=== PATIENT | male | born 1970 | race Caucasian/White ===

== ENCOUNTER → 2017-07-04 10:47 | Outpatient (CLI) | payer OTHER | END | disposition home or self-care (01) | LOC: D.RAD 10:30 | DX: Z02.71 Encounter for disability determination (principal) ==

== ENCOUNTER 2019-02-15 12:16 | Inpatient (IN) | payer MEDICAID ==
[~2019-02-15] VITALS: Ht 180.3 cm; Wt 192.8 kg
--- NOTE | 2019-02-15 13:05 | NUR ---
ALERT AND ORIENTED X4 WITH DYSPNEA NOTED. OBESE MALE WITH BS NOTED. ENCOURAGED TO USE CALL LIGHT FOR ASSIST.
[2019-02-15 13:36] LABS: BASOPHILS 0.4 % (0-2); EOSINOPHILS 0.2 % (0-7); HEMATOCRIT 47.4 % (42.0-54.0); HEMOGLOBIN 16.2 g/dL (13.5-17.5); IMMATURE GRANULOCYTES 1.4 % (0-5); LYMPHOCYTES 12.8 % (15-50); MCH 29.7 pg (26.0-34.0); MCHC 34.2 g/dL (31.0-37.0); MEAN PLATELET VOLUME 9.1 fL (7.4-10.4); MONOCYTES 8.8 % (2-11); NEUTROPHILS 76.4 % (40-80); PLATELET COUNT 388 10x3/uL (130-400); RBC 5.45 10x6/uL (4.20-6.10)
[2019-02-15 13:52] LABS: ALBUMIN 3.1 g/dL (3.4-5.0); ALKALINE PHOSPHATASE 106 U/L (46-116); ALT (SGPT) 22 U/L (10-68); BILIRUBIN - TOTAL 0.14 mg/dL (0.2-1.3); CALC OSMOLALITY 276 mosm/kg (275-300); CALCIUM 9.2 mg/dL (8.5-10.1); CARBON DIOXIDE 24.1 mmol/L (21.0-32.0); CHLORIDE - SERUM 102 mmol/L (98-107); CREATININE - SERUM 1.1 mg/dL (0.6-1.3); GLUCOSE 139 mg/dL (74-106); POTASSIUM - SERUM 4.3 mmol/L (3.5-5.1); PROTEIN - SERUM 7.5 g/dL (6.4-8.2); SODIUM 136 mmol/L (136-145); UREA NITROGEN 21 mg/dL (7-18); eGFR NON AFRICAN AMERICAN 75 mL/min (90-120)
[2019-02-15 13:59] VITALS: BP 152/87
[2019-02-15 15:37] LABS: CKMB 2.2 U/L (0.0-3.6); CREATINE KINASE 93 UL (21-232); TROPONIN-I 0.039 ng/mL (0.000-0.060)
[2019-02-15 20:34] LABS: CKMB 2.1 U/L (0.0-3.6); CREATINE KINASE 73 UL (21-232); TROPONIN-I < 0.017 ng/mL (0.000-0.060)
[2019-02-15 20:40] VITALS: BP 163/86
--- NOTE | 2019-02-15 23:02 | NUR ---
PT RESTING IN BED. EYES CLOSED. NO SIGNS OF DISTRESS. BREATHING EVEN AND UNLABORED. IV SITE LT HAND DRESSING CLEAN DRY AND INTACT. NO SIGNS OF INFECTION. BOWEL SOUNDS ACTIVE. LUNG SOUNDS DIMINISHED. WILL CONTINUE PLAN OF CARE. CALL LIGHT IN REACH. BED LOWERED AND LOCKED. BED RAILS UPX2.
[2019-02-16 00:19] VITALS: BP 154/85
--- NOTE | 2019-02-16 01:01 | NUR ---
REPORT RECEIVED AND CARE OF PT ASSUMED. PT RESTING ON LEFT SIDE AT THIS TIME WITH EASY RESPIRATIONS. WILL MONITOR FOR NEEDS.
[2019-02-16 03:15] LABS: BASOPHILS 0.1 % (0-2); EOSINOPHILS 0 % (0-7); HEMOGLOBIN 15.7 g/dL (13.5-17.5); IMMATURE GRANULOCYTES 2.4 % (0-5); LYMPHOCYTES 6.1 % (15-50); MCH 29.4 pg (26.0-34.0); MCHC 33.4 g/dL (31.0-37.0); MEAN PLATELET VOLUME 9.2 fL (7.4-10.4); MONOCYTES 2.6 % (2-11); NEUTROPHILS 88.8 % (40-80); PLATELET COUNT 376 10x3/uL (130-400); RBC 5.34 10x6/uL (4.20-6.10); RDW 15.2 % (11.5-14.5); WBC 14.2 10x3/uL (4.8-10.8)
[2019-02-16 03:37] LABS: CALC OSMOLALITY 280 mosm/kg (275-300); CALCIUM 8.8 mg/dL (8.5-10.1); CARBON DIOXIDE 27.4 mmol/L (21.0-32.0); CHLORIDE - SERUM 101 mmol/L (98-107); CKMB 2.1 U/L (0.0-3.6); CREATINE KINASE 60 UL (21-232); CREATININE - SERUM 1.1 mg/dL (0.6-1.3); GLUCOSE 181 mg/dL (74-106); MAGNESIUM - SERUM 1.9 mg/dL (1.8-2.4); POTASSIUM - SERUM 4.4 mmol/L (3.5-5.1); SODIUM 137 mmol/L (136-145); TROPONIN-I < 0.017 ng/mL (0.000-0.060); UREA NITROGEN 19 mg/dL (7-18); eGFR NON AFRICAN AMERICAN 75 mL/min (90-120)
[2019-02-16 04:50] VITALS: BP 164/87
[2019-02-16 08:58] VITALS: BP 154/96
--- NOTE | 2019-02-16 09:00 | NUR ---
ALERT AND ORIENTED WITHCONTINUED DYSPNEA. BREATH SOUNDS DIMINISHED TO BLQ ANTERIOR. OVF CONTINUED TO LT. HAND AT PRESCRIBED RATE. NO PERIPHERAL EDEMA NOTED. ENCOURAGED TO COUGH AND DEEP BREATH AND AMBULATE. ENOURAGED TO USE CALL LIGHT FOR ASSSIT.
[2019-02-16 12:35] VITALS: BP 179/81
[2019-02-16 17:36] VITALS: BP 143/72
[2019-02-16 20:21] VITALS: BP 161/75
[2019-02-17 00:32] VITALS: BP 151/56
--- NOTE | 2019-02-17 03:00 | NUR ---
I have reviewed this patient and I concur with the Shift Assessment completed by the Licensed Practical Nurse today this shift.
[2019-02-17 04:37] VITALS: BP 140/58
[2019-02-17 05:24] LABS: BASOPHILS 0.1 % (0-2); EOSINOPHILS 0.1 % (0-7); HEMATOCRIT 46.3 % (42.0-54.0); HEMOGLOBIN 15.2 g/dL (13.5-17.5); IMMATURE GRANULOCYTES 2.4 % (0-5); LYMPHOCYTES 5.7 % (15-50); MCHC 32.8 g/dL (31.0-37.0); MCV 88.4 fL (80.0-100.0); MEAN PLATELET VOLUME 9.4 fL (7.4-10.4); MONOCYTES 6.1 % (2-11); NEUTROPHILS 85.6 % (40-80); PLATELET COUNT 354 10x3/uL (130-400); RBC 5.24 10x6/uL (4.20-6.10); RDW 15.3 % (11.5-14.5); WBC 17.7 10x3/uL (4.8-10.8)
[2019-02-17 05:47] LABS: CALC OSMOLALITY 283 mosm/kg (275-300); CALCIUM 8.7 mg/dL (8.5-10.1); CARBON DIOXIDE 28.3 mmol/L (21.0-32.0); CHLORIDE - SERUM 104 mmol/L (98-107); CREATININE - SERUM 1.1 mg/dL (0.6-1.3); GLUCOSE 204 mg/dL (74-106); POTASSIUM - SERUM 4.5 mmol/L (3.5-5.1); SODIUM 138 mmol/L (136-145); UREA NITROGEN 19 mg/dL (7-18); eGFR NON AFRICAN AMERICAN 75 mL/min (90-120)
[2019-02-17 07:28] VITALS: BP 141/79
--- NOTE | 2019-02-17 07:46 | NUR ---
ALERT AND ORIENTED WITH DECREASED SHORTNESS OF BREATH. SLIGHTLY DIMINISHED TORLQ ANTERIOR. ERRYTHEMA NOTED TO TONISL AREAS RT. SIDE WITH PT STATING TROUBLE SWALLOWING AT TIMES. NO PERIPHERAL EDEMA. ENCOURAGED TO USE CALL LIGHT FOR ASSSIT.
[2019-02-17 12:52] VITALS: BP 151/61
--- NOTE | 2019-02-17 17:00 | NUR ---
CALLED TO PATIENTS ROOM FOR COMPLAINTS OF CHEST PAIN. PT ASSESSED WITH RAPID RESPONSE CALLED. SEE RAPID RESPONSE SHEET.
[2019-02-17 17:36] LABS: CKMB 3.3 U/L (0.0-3.6); CREATINE KINASE 71 UL (21-232); TROPONIN-I 0.045 ng/mL (0.000-0.060)
--- NOTE | 2019-02-17 17:40 | NUR ---
PT LEFT FOR CTA WITH 20G STARTED TO RT. FOREARM, STABLE AT TIME OF DEPARTURE WITH MS GIVEN PER ORDER. ICU NURSE WITH PATIENT
--- NOTE | 2019-02-17 18:00 | NUR ---
1700: RAPID RESPONSE CALLED, PT COMPLAINT OF SEVERE CHEST PAIN TO RT SIDE WITH SHORTNESS OF BREATH. CARIAC ENZYMES, DDIMER, ABG, EKG, CHEST XRAY ORDERED. SPOKE WITH DR GRISSOM, STATED TO DO CTA CHEST FOR PE PROTOCOL, NITRO X 1 FOR CHEST PAIN, AND 2 TO 4 MG X 1 MORPHINE IF PAIN PERSISTS, AND DR GRISSOM SAID TO CALL BACK WITH DDIMER/CARDIAC ENZYME RESULTS. DR CURTIS ALSO NOTIFIED, STATED HE AGREED WITH ORDERS ALREADY ORDERED/CARRIED OUT, AND TO MAKE SURE CARDIAC ENZYMES ARE PERFORMED IN AM. PT EF 55%. AT 1800: RESULTS CALLED TO DR GRISSOM AND CTA CHEST IS COMPLETE. DR GRISSOM STATED TO KEEP PT IN ROOM, AND THAT HE WAS ON HIS WAY TO SEE THE PT. PT STATES CHEST PAIN HAS SUBSIDED AND DENIES ANY FURTHER NEEDS/DISCOMFORTS. NO FURTHER ACTIONS. SEE RAPID RESPONSE SHEET FOR FURTHER INFORMATION.
--- NOTE | 2019-02-17 18:00 | NUR ---
PT RETURNED WITH IVF INFUSING AT PRESCRIBED RATE. DENIES ANY PAIN AT THIS TIME.
[2019-02-17 18:24] VITALS: BP 179/71
--- NOTE | 2019-02-17 19:00 | NUR ---
PT ALERT WHEN ENTERING THE ROOM BUT SLIGHTLY DISORIENTED. PATIENT DEMEANOR MUCH DIFFERENT THAN NIGHT BEFORE. PATIENT IRRITABLE. STATES "I DIDN'T WANT ALL THESE MEDICINES THEY GAVE ME! I TOLD YALL I DONT LIKE PAIN MEDICINE!." PATIENT CALMS EASILY BUT REMAINS IRRITAED. COMPLAINS OF RIGHT SIDED PAIN AGAIN AND DENIES AND ACID REFLUX HISTORY SINCE GALL BLADDER REMOVAL YEARS AGO. PATIENT STATES HE WOULD LIKE TO REST. DENIES FURTHER NEEDS AT THIS TIME. BROTHER AT BEDSIDE. EDUCATED PATIENT ON FALL PRECAUTIONS. PATIENT VERBALIZES UNDERSTANDING. CPOC.
[2019-02-17 20:00] VITALS: BP 156/83
[2019-02-18] VITALS: BP 132/69
[2019-02-18 04:00] VITALS: BP 138/69
[2019-02-18 05:38] LABS: BASOPHILS 0.1 % (0-2); EOSINOPHILS 0 % (0-7); HEMATOCRIT 44.5 % (42.0-54.0); HEMOGLOBIN 14.8 g/dL (13.5-17.5); IMMATURE GRANULOCYTES 4.2 % (0-5); LYMPHOCYTES 7.9 % (15-50); MCHC 33.3 g/dL (31.0-37.0); MCV 87.1 fL (80.0-100.0); MEAN PLATELET VOLUME 9.6 fL (7.4-10.4); MONOCYTES 10.6 % (2-11); NEUTROPHILS 77.2 % (40-80); PLATELET COUNT 316 10x3/uL (130-400); RBC 5.11 10x6/uL (4.20-6.10); RDW 15.3 % (11.5-14.5); WBC 19.5 10x3/uL (4.8-10.8)
[2019-02-18 05:52] LABS: CALC OSMOLALITY 275 mosm/kg (275-300); CALCIUM 8.4 mg/dL (8.5-10.1); CARBON DIOXIDE 31.2 mmol/L (21.0-32.0); CHLORIDE - SERUM 102 mmol/L (98-107); MAGNESIUM - SERUM 2.2 mg/dL (1.8-2.4); POTASSIUM - SERUM 4.4 mmol/L (3.5-5.1); SODIUM 136 mmol/L (136-145); UREA NITROGEN 18 mg/dL (7-18); eGFR NON AFRICAN AMERICAN 84 mL/min (90-120)
[2019-02-18 05:55] LABS: GLUCOSE 136 mg/dL (74-106)
--- NOTE | 2019-02-18 07:00 | NUR ---
ALERT AND ORIENTED, SITTING UP IN BED. NO C/O PAIN. NO S/S OF ACUTE DISTRESS NOTED. LEFT SIDE FACIAL SWELLING, TONSILS RED AND SWOLLEN. GROWTH TO LEFT SIDE OF CHEST, PHYSICIAN AWARE. ON ELECTROLYTE PROTOCOL. IV TO LEFT HAND/RIGHT FOREARM, D5 1/2 NS INFUSING @ 75ML/HR. SITES PATENT WITHOUT REDNESS OR SWELLING. PT DENIES ANY NEEDS AT THIS TIME. CALL LIGTH IN REACH. WILL CONTINUE TO MONITOR..
[2019-02-18 09:02] VITALS: BP 132/84
--- NOTE | 2019-02-18 09:51 | NUR ---
I have reviewed this patient and I concur with the Shift Assessment completed by the Licensed Practical Nurse today this shift.
[2019-02-18 13:12] VITALS: BP 188/90
[2019-02-18 14:15] VITALS: Ht 180.3 cm; Wt 192.8 kg
[2019-02-18 16:47] LABS: APPEARANCE CLEAR (CLEAR); BILIRUBIN NEGATIVE (NEGATIVE); COLOR YELLOW (YELLOW); GLUCOSE 100 mg/dL (NEGATIVE); KETONE NEGATIVE (NEGATIVE); NITRITE NEGATIVE (NEGATIVE); PROTEIN NEGATIVE (NEGATIVE); UROBILINOGEN NORMAL (NORMAL)
[2019-02-18 18:02] VITALS: BP 150/80
--- NOTE | 2019-02-18 19:00 | NUR ---
ALERT AND ORIENTED. NO C/O PAIN. NO S/S OF ACUTE DISTRESS NOTED. PT DENIES ANY NEEDS.
[2019-02-18 20:00] VITALS: BP 144/83
--- NOTE | 2019-02-18 20:30 | NUR ---
SUPINE IN BED, A&O X 4. REPORTS MILD PAIN, BUT REFUSES PAIN MEDICATION. STATES HE CAN TOLERATE PAIN BETTER THAN HE TOLERATES PAIN MEDICATION. DENIES NEEDS AT THIS TIME, WILL CONTINUE TO MONITOR.
[2019-02-19 04:00] VITALS: BP 122/75
[2019-02-19 06:35] LABS: BASOPHILS 0.1 % (0-2); EOSINOPHILS 0 % (0-7); HEMATOCRIT 45.7 % (42.0-54.0); HEMOGLOBIN 14.9 g/dL (13.5-17.5); IMMATURE GRANULOCYTES 4.1 % (0-5); LYMPHOCYTES 6.7 % (15-50); MCH 28.7 pg (26.0-34.0); MCHC 32.6 g/dL (31.0-37.0); MCV 87.9 fL (80.0-100.0); MEAN PLATELET VOLUME 9.7 fL (7.4-10.4); MONOCYTES 9.5 % (2-11); NEUTROPHILS 79.6 % (40-80); PLATELET COUNT 267 10x3/uL (130-400); RDW 15.4 % (11.5-14.5); WBC 17.9 10x3/uL (4.8-10.8)
[2019-02-19 06:54] LABS: CALC OSMOLALITY 281 mosm/kg (275-300); CALCIUM 8.5 mg/dL (8.5-10.1); CARBON DIOXIDE 34.8 mmol/L (21.0-32.0); CHLORIDE - SERUM 102 mmol/L (98-107); CREATININE - SERUM 1.1 mg/dL (0.6-1.3); GLUCOSE 137 mg/dL (74-106); MAGNESIUM - SERUM 2.6 mg/dL (1.8-2.4); SODIUM 139 mmol/L (136-145); UREA NITROGEN 18 mg/dL (7-18); eGFR NON AFRICAN AMERICAN 75 mL/min (90-120)
[2019-02-19 06:55] LABS: POTASSIUM - SERUM 5.1 mmol/L (3.5-5.1)
--- NOTE | 2019-02-19 07:20 | NUR ---
PT RESTING IN BED WITH EYES OPEN, BROTHER AT THE BEDSIDE. ALERT AND ORIENTED WITH NO S/S OF DISTRESS. IV LOCATED TO RIGHT FOREARM SL. DENIES NEEDS AT THIS TIME, WILL CONT TO MONITOR.
[2019-02-19 09:08] VITALS: BP 143/80
--- NOTE | 2019-02-19 11:09 | CN ---
PATIENT NAME:COLTON CUBA MEDICAL RECORD: [id number] : 66 LOCATION:D.MS [id number] ADMIT DATE: 02/15/19 ACCOUNT: [id number] CONSULTING PHYSICIAN: KESHAWN CURTIS MD REFERRING PHYSICIAN: CECELIA GRISSOM DO DATE OF CONSULTATION: 02/17/2019 ADMITTING DIAGNOSES: 1. Atypical chest pain. 2. Pneumonia. HISTORY OF PRESENT ILLNESS: This is a gentleman who presents with increasing shortness of breath, pneumonia, right-sided chest pain. His chest pain is worse with deep inspiration, worse if he moves his right arm. It is definitely positional. He has not had any left-sided chest pain, not had any chest pain compatible with angina. His troponins are normal. His EKG is with no significant ST-T abnormalities. He had an echocardiogram already this admission. This was overall normal. Mild valvular insufficiency, but normal ejection fraction, normal wall motion. PHYSICAL EXAMINATION: CONSTITUTIONAL/GENERAL APPEARANCE: Well nourished, well developed, appears stated age. EYES: Lids and conjunctivae noninjected. No discharge. No pallor. ENT: Lips within normal limit. No cyanosis. No pallor. NECK: Carotid arteries, bilateral normal upstroke. No bruits. No thrills. No jugular venous pressure or distention. CERVICAL LYMPH NODES: Nontender. Nonenlarged. THYROID: Not enlarged. No nodules. CARDIOVASCULAR: Precordial exam, nondisplaced. No heaves or pericardial thrills. Rate and rhythm, regular. Heart sounds, normal S1, normal S2. No S3, no gallop, no rub. Systolic murmur, not heard. Diastolic murmur, not heard. RESPIRATORY: Respiratory effort, unlabored. Normal curvature. No thoracic deformity. No chest wall tenderness. Percussion, resonant. Auscultation, clear. No wheezes, no rales, no rhonchi. ABDOMEN: Soft, nondistended, nontender. No abdominal pain, no vomiting and normal appetite. MUSCULOSKELETAL: No joint tenderness, normal gait, normal tone. SKIN: Warm and dry. OVERALL IMPRESSION: Chest pain, atypical, noncardiac with some pleuritic and/or musculoskeletal. At this time, no other cardiac workup or treatment is necessary. TRANSINT:[id number] Voice Confirmation ID: [id number] DOCUMENT ID: [id number] KESHAWN CURTIS MD at 1109 CC: [id number] DICTATION DATE: 02/17/19 1200 DERMATOLOGIST AND DERMATOPATHOLOGIST: 02/17/19 1205 ADM IN [place] [id number] [place] [id number]
--- NOTE | 2019-02-19 11:09 | EC ---
PATIENT:COLTON CUBA DATE OF SERVICE: 02/15/19 SEX: M MEDICAL RECORD: [id number] DATE OF : [birth year] LOCATION:D.MS [place] AGE OF PATIENT: 48 ADMISSION DATE: 02/15/19 REFERRING PHYSICIAN: INTERPRETING PHYSICIAN: KESHAWN DOBBS MD ECHOCARDIOGRAM REPORT ECHO CHARGES 4 ECHO COMPLETE Date: 02/16/19 CLINICAL DIAGNOSIS: DYSPNEA ECHOCARDIOGRAPHIC MEASUREMENTS (adult normal given) AC root (d.<3.7cm) 3.3 cm LV Septum d (<1.2 cm> 1.8 cm Valve Excursion 1.9 cm LV Septum (systole) 1.9 cm Left Atria (s.<4.0cm> 4.7 cm LVPW d(<1.2cm) 1.4 cm RV (d.<2.3cm) 3.2 cm LVPW (sytole) 1.6 cm LV diastole(<5.6CM) 6.7 cm MV E-F(>70mm/sec) cm LV systole 5.9 cm LVOT Diameter 2.6 cm MV exc.(>10mm) cm Est.ejection fraction (50-75%) % DOPPLER: LVIT cm/sec A 74 cm/sec E 57 cm/sec LA cm/sec RVSP 18.9 mmHg LVOT 131 cm/sec AOP1/2T m/s Asc. Ao 140 cm/sec RVOT 114 cm/sec RA cm/sec PA 144 cm/sec AV Gradient Peak 7.8 mmHg AV Mean 5.6 mmHg AV Area 4.5 cm MV Gradient Peak 3.0 mmHg MV Mean 1.7 mmHg MV Area cm COMMENTS: Intermodal Owner Operator Truck Driver: Capri BROWN Tree Girdler: 1 Dr. Dobbs TAPE# PACS Pericardial Effusion N DATE OF SERVICE: 02/16/2019 ECHOCARDIOGRAM DATE OF SERVICE: 02/16/2019 FINDINGS: 1. Left ventricular chamber size is mildly dilated. Left ventricular systolic function is preserved at 55%. 2. Left atrium is enlarged at 4.7 cm. Right atrium and right ventricular ECHOCARDIOGRAM REPORT [id number] COLTON CUBA chamber sizes are as well mildly dilated. 3. Valvular structures have normal structure and motion. 4. Doppler interrogation reveals mild aortic insufficiency, trace mitral regurgitation, trace tricuspid regurgitation, no other valvular insufficiency or stenosis. Pulmonary systolic pressure is estimated at 19 mmHg. 5. No evidence of pericardial effusion or left ventricular thrombus. TRANSINT:[id number] Voice Confirmation ID: [id number] DOCUMENT ID: [id number] KESHAWN DOBBS MD at 1109 CC: [id number] DICTATION DATE: 02/16/19 1507 DETECTIVE PRIVATE EYE: 02/16/19 1540 ADM IN [place] [address] [place] [address]
[2019-02-19 12:17] VITALS: BP 147/66
[2019-02-19 16:45] VITALS: BP 152/73
--- NOTE | 2019-02-19 17:16 | MORECARE ---
CASE MANAGEMENT DISCHARGE SUMMARY PATIENT: COLTON CUBA UNIT: [id number] ADM DATE: 02/15/19 AGE: 48 : [birth year] SEX: M ROOM/BED: D.2236 AUTHOR: SANDY VELASQUEZ PHYSICIAN: REFERRING PHYSICIAN: CECELIA GRISSOM DO DATE OF SERVICE: 02/19/19 Discharge Plan Patient Name: COLTON CUBA Facility: [facility]:[place] : 1970 Planned Disposition: Home Anticipated Discharge Date: Discharge Date: Expected LOS: Initial Reviewer: [email or web address] Initial Review Date: 02/19/2019 Generated: 02/19/19 6:16 pm DCPIA - Discharge Planning Initial Assessment Updated by [email or web address]: Ada Garcia on 02/19/19 5:16 pm * Is the patient Alert and Oriented? Yes * PCP Dr. Grissom * Pharm[facility] in [place] * Preadmission Environment Home with Family * ADLs Independent * Equipment None * List name and contact numbers for known caregivers / representatives who currently or will assist patient after discharge: Jose M brother - [phone] Concetta Kent mother - [phone] * Verbal permission to speak to the caregivers and representatives has been obtained from the patient. Yes * Community resources currently utilized None * Additional services required to return to the preadmission environment? No * Can the patient safely return to the preadmission environment? Yes * Has this patient been hospitalized within the prior 30 days at any hospital? No Patient Name: COLTON CUBA Page [id number] at 1716 All edits/amendments must be made on the electronic document DICTATION DATE: 02/19/191715 DISH UP PERSON: CINTHIA 02/19/191715 RPT#: [id number] DC DATE: STATUS: ADM IN [facility] [address] [place] [address] END OF REPORT
--- NOTE | 2019-02-19 17:26 | MORECARE ---
CASE MANAGEMENT DISCHARGE SUMMARY PATIENT: COLTON CUBA UNIT: [id number] ADM DATE: 02/15/19 AGE: 48 : [birth year] SEX: M ROOM/BED: D.2236 AUTHOR: RON,SANDY PHYSICIAN: REFERRING PHYSICIAN: CECELIA GRISSOM DO DATE OF SERVICE: 02/19/19 Discharge Plan Patient Name: COLTON CUBA Facility: [facility]:[place] : 1970 Planned Disposition: Home Anticipated Discharge Date: Discharge Date: Expected LOS: Initial Reviewer: [email or web address] Initial Review Date: 02/19/2019 Generated: 02/19/19 6:25 pm Comments DCP- Discharge Planning Updated by [email or web address]: Ada Garcia on 02/19/19 4:[address] Patient Name: COLTON CUBA Admission Status: Elective Accout number: [id number] Admission Date: 02-15-2019 : 1970 Admission Diagnosis: Attending: CECELIA GRISSOM Current LOS: 4 Anticipated DC Date: Planned Disposition: Home Primary Insurance: [place]ID [place] CM met with patient to complete initial dc planning assessment. CM educated patient on the CM role and verbal consent given by patient to complete assessment. Patient lives at home with his brother. At discharge patient plans to return and feels this is a safe discharge. CM discussed availability of home health, rehab services, and medical equipment. Patient denied known discharge needs at this time. States his brother will take him home at discharge. States he will need to be discharged early tomorrow morning if possible before his brother leaves town CM will continue to follow and will assist as needed with dc plans/needs. Discharge Planning Comments: Special Education Resource Teacher: Ada Garcia DCPIA - Discharge Planning Initial Assessment Updated by [email or web address]: Ada Garcia on 02/19/19 5:16 pm * Is the patient Alert and Oriented? Yes * PCP Dr. Grissom * [facility] in [place] * Preadmission Environment Home with Family * ADLs Independent * Equipment None * List name and contact numbers for known caregivers / representatives who currently or will assist patient after discharge: Jose M Moore brother - [phone] Concetta guthrie - [phone] * Verbal permission to speak to the caregivers and representatives has been obtained from the patient. Yes * Community resources currently utilized None * Additional services required to return to the preadmission environment? No * Can the patient safely return to the preadmission environment? Yes * Has this patient been hospitalized within the prior 30 days at any hospital? No Last DP export: 02/19/19 4:16 p Patient Name: COLTON CUBA Page [id number] at 1726 All edits/amendments must be made on the electronic document DICTATION DATE: 02/19/191724 STORY WRITER: CINTHIA 02/19/191724 RPT#: [id number] DC DATE: STATUS: ADM IN [facility] [address] [place] [address] END OF REPORT
--- NOTE | 2019-02-19 19:40 | NUR ---
PT SITTING UP IN BED WITHOUT DISTRESS. A0X4. IV LEFT HAND SL, FLUSHES EASILY. STATES NO PAIN BUT COMPLAINS OF SOME DISCOMFORT TO BILAT EARS. STATES HE HAS A HARD TIME HEARING LATELY. FRIEND AT BEDSIDE. DENIES NEEDS. CL IN REACH, WILL CTM
[2019-02-19 20:00] VITALS: BP 154/82
[2019-02-20 04:00] VITALS: BP 155/97
[2019-02-20 06:38] LABS: HEMATOCRIT 44.2 % (42.0-54.0); HEMOGLOBIN 14.3 g/dL (13.5-17.5); MCH 28.5 pg (26.0-34.0); MCHC 32.4 g/dL (31.0-37.0); MEAN PLATELET VOLUME 9.8 fL (7.4-10.4); PLATELET COUNT 234 10x3/uL (130-400); RBC 5.02 10x6/uL (4.20-6.10); RDW 15.7 % (11.5-14.5); WBC 19.7 10x3/uL (4.8-10.8)
[2019-02-20 06:40] LABS: CALC OSMOLALITY 283 mosm/kg (275-300); CALCIUM 8.2 mg/dL (8.5-10.1); CARBON DIOXIDE 33.3 mmol/L (21.0-32.0); CHLORIDE - SERUM 102 mmol/L (98-107); CREATININE - SERUM 1.1 mg/dL (0.6-1.3); GLUCOSE 139 mg/dL (74-106); MAGNESIUM - SERUM 2.5 mg/dL (1.8-2.4); POTASSIUM - SERUM 4.5 mmol/L (3.5-5.1); SODIUM 139 mmol/L (136-145); eGFR NON AFRICAN AMERICAN 75 mL/min (90-120)
[2019-02-20 06:41] LABS: UREA NITROGEN 23 mg/dL (7-18)
[2019-02-20 08:48] VITALS: BP 174/84
[2019-02-20 09:53] LABS: ANISOCYTOSIS OCC; LYMPHOCYTES 6 % (15-50); MONOCYTES 17 % (2-11); NEUTROPHILS 75 % (40-80); PLATELET ESTIMATE NORMAL
[2019-02-20 11:43] VITALS: BP 150/75
[2019-02-20 16:34] VITALS: BP 127/66
--- NOTE | 2019-02-20 19:33 | NUR ---
LYING IN BED WITH TELEVISION ON, ABLE TO VOICE ALL NEEDS. DENIES ANY PAIN AT THIS TIME. REQUESTS COKE, REQUEST MET. WILL NOTE ANY CHANGE.
[2019-02-20 20:00] VITALS: BP 126/77
--- NOTE | 2019-02-20 23:39 | NUR ---
I have reviewed this patient and I concur with the Shift Assessment completed by the Licensed Practical Nurse today this shift.
[2019-02-21 04:00] VITALS: BP 158/88
--- NOTE | 2019-02-21 04:49 | NUR ---
APPROACHED NURSING STATION REQUESTING IV TO BE PULLED OUT BY NURSING, STATES IT IS CAUSING HIM IMMENSE PAIN, IV SITE IS WITHOUT ABNORMALITY, FLUSHES WITH EASE, PEPCID GIVEN PER IV AT THIS AND IV WAS DISCONTINUED, NURSE WENT TO FILL REQUEST OF SODA, UPON RETURNING, BANDAGE WAS OFF IV SITE, BLOOD WAS NOTICED, IT WAS NOTED THAT PT WAS DRY HEAVING AND NOT TOLERATING SITE OF BLOOD WELL. BEFORE DISCONTINUING SALINE LOC IV, IT HAD BLOOD RETURN TO J-LOOP. CATHETER WAS INTACT UPON REMOVAL. BLEEDING SUBSIDED. WILL NOTE ANY CHANGE.
--- NOTE | 2019-02-21 05:31 | NUR ---
REVIEWED HOME MEDICATION LIST WITH PATIENT. HE STATES HE TAKES NO HOME MEDS ON A DAILY OR REGULAR BASIS. NOTED IN MED REC.
[2019-02-21 06:34] LABS: BASOPHILS 0.3 % (0-2); EOSINOPHILS 0.6 % (0-7); HEMATOCRIT 44.6 % (42.0-54.0); HEMOGLOBIN 14.4 g/dL (13.5-17.5); IMMATURE GRANULOCYTES 5.7 % (0-5); LYMPHOCYTES 15.1 % (15-50); MCH 28.7 pg (26.0-34.0); MCHC 32.3 g/dL (31.0-37.0); MCV 88.8 fL (80.0-100.0); MEAN PLATELET VOLUME 9.8 fL (7.4-10.4); MONOCYTES 10.8 % (2-11); NEUTROPHILS 67.5 % (40-80); RBC 5.02 10x6/uL (4.20-6.10); WBC 18.5 10x3/uL (4.8-10.8)
[2019-02-21 06:36] LABS: PLATELET COUNT 179 10x3/uL (130-400)
[2019-02-21 06:46] LABS: ANION GAP 6.9 mmol/L (8-16); CALCIUM 8.1 mg/dL (8.5-10.1); CREATININE - SERUM 1.2 mg/dL (0.6-1.3); POTASSIUM - SERUM 3.9 mmol/L (3.5-5.1)
[2019-02-21 09:39] VITALS: BP 155/50
[2019-02-21] MEDS ORDERED: FLOXIN 0.3 % OTI5 ML EACH EAR (11:34)
[2019-02-21] MEDS ORDERED: AUGMENTIN 875-11 TAB PO (11:34)
[2019-02-21] MEDS ORDERED: ZITHROMAX500 MG PO (11:35)
[2019-02-21 11:56] VITALS: BP 132/58
--- NOTE | 2019-02-21 12:20 | MORECARE ---
CASE MANAGEMENT DISCHARGE SUMMARY PATIENT: COLTON CUBA UNIT: [id number] ADM DATE: 02/15/19 AGE: 48 : 66 SEX: M ROOM/BED: D.2236 AUTHOR: SANDY VELASQUEZ PHYSICIAN: REFERRING PHYSICIAN: CECELIA GRISSOM DO DATE OF SERVICE: 02/21/19 Discharge Plan Patient Name: COLTON CUBA Facility: [facility]:[place] : 1970 Planned Disposition: Home Anticipated Discharge Date: Discharge Date: Expected LOS: Initial Reviewer: [email or web address] Initial Review Date: 02/19/2019 Generated: 02/21/19 1:20 pm Comments DCP- Discharge Planning Updated by [email or web address]: Ada Garcia on 02/21/19 11:[address] Patient Name: COLTON CUBA Encounter No: [id number] : 1970 Primary Insurance: [place] Anticipated DC Date: Planned Disposition: Home External Planned Provider: : DCP follow-up note: Patient and family in agreement with discharge plan. No changes to plan. Case management will follow and assist as needed. Ada Garcia DCP- Discharge Planning Updated by [email or web address]: Ada Garcia on 02/19/19 4:[address] Patient Name: COLTON CUBA Admission Status: Elective Accout number: [id number] Admission Date: 02-15-2019 : 1970 Admission Diagnosis: Attending: CECELIA GRISSOM Current LOS: 4 Anticipated DC Date: Planned Disposition: Home Primary Insurance: [place] CM met with patient to complete initial dc planning assessment. CM educated patient on the CM role and verbal consent given by patient to complete assessment. Patient lives at home with his brother. At discharge patient plans to return and feels this is a safe discharge. CM discussed availability of home health, rehab services, and medical equipment. Patient denied known discharge needs at this time. States his brother will take him home at discharge. States he will need to be discharged early tomorrow morning if possible before his brother leaves town CM will continue to follow and will assist as needed with dc plans/needs. Discharge Planning Comments: Sports Fitness [employer] Wellness Director: dAa Garcia DCPIA - Discharge Planning Initial Assessment Updated by [email or web address]: Ada Santiagohoward on 02/19/19 5:16 pm * Is the patient Alert and Oriented? Yes * PCP Dr. Grissom * Pharmacy [facility] in [place] * Preadmission Environment Home with Family * ADLs Independent * Equipment None * List name and contact numbers for known caregivers / representatives who currently or will assist patient after discharge: Jose M Moore brother - [phone] Concetta Kent - mother - [phone] * Verbal permission to speak to the caregivers and representatives has been obtained from the patient. Yes * Community resources currently utilized None * Additional services required to return to the preadmission environment? No * Can the patient safely return to the preadmission environment? Yes * Has this patient been hospitalized within the prior 30 days at any hospital? No Last DP export: 02/19/19 4:26 p Patient Name: COLTON CUBA Page [id number] at 1220 All edits/amendments must be made on the electronic document DICTATION DATE: 02/21/19 121 SAFETY BELT INSTALLER: CINTHIA 02/21/19 1219 RPT#: [id number] [place] DATE: STATUS: ADM IN [facility] [address] [place] [address] END OF REPORT
--- NOTE | 2019-02-21 13:49 | NUR ---
DC HOME AT THIS TIME VOICE UNDERSTANDING OF DC ORDERS. NO IV ACCESS AT THIS TIME. NO C/O NOTED. STABLE CONDITION UPON DEPARTURE.
--- NOTE | 2019-02-23 12:05 | MORECARE ---
CASE MANAGEMENT DISCHARGE SUMMARY PATIENT: COLTNO CUBA UNIT: [id number] ADM DATE: 02/15/19 AGE: 48 : 66 SEX: M ROOM/BED: D.2236 AUTHOR: SANDY VELASQUEZ PHYSICIAN: REFERRING PHYSICIAN: CECELIA GRISSOM DO DATE OF SERVICE: 02/23/19 Discharge Plan Patient Name: COLTON CUBA Facility: [facility]:[place] : 1970 Planned Disposition: Home Anticipated Discharge Date: Discharge Date: 02/21/2019 Expected LOS: Initial Reviewer: [email or web address] Initial Review Date: 02/19/2019 Generated: 02/23/19 1:05 pm Comments DCP- Discharge Planning Updated by [email or web address]: Ada Garcia on 02/21/19 11:[address] Patient Name: COLTON CUBA Encounter No: [id number] : 1970 Primary Insurance: [place] Anticipated DC Date: Planned Disposition: Home External Planned Provider: : DCP follow-up note: Patient and family in agreement with discharge plan. No changes to plan. Case management will follow and assist as needed. Ada Garcia DCP- Discharge Planning Updated by [email or web address]: Aad Garcia on 02/19/19 4:[address] Patient Name: COLTON CUBA Admission Status: Elective Accout number: [id number] Admission Date: 02-15-2019 : 1970 Admission Diagnosis: Attending: CECELIA GRISSOM Current LOS: 4 Anticipated DC Date: Planned Disposition: Home Primary Insurance: [place] CM met with patient to complete initial dc planning assessment. CM educated patient on the CM role and verbal consent given by patient to complete assessment. Patient lives at home with his brother. At discharge patient plans to return and feels this is a safe discharge. CM discussed availability of home health, rehab services, and medical equipment. Patient denied known discharge needs at this time. States his brother will take him home at discharge. States he will need to be discharged early tomorrow morning if possible before his brother leaves town CM will continue to follow and will assist as needed with dc plans/needs. Discharge Planning Comments: Crime Analyst: Ada Santiagohoward DCPIA - Discharge Planning Initial Assessment Updated by [email or web address]: Ada Jose on 02/19/19 5:16 pm * Is the patient Alert and Oriented? Yes * PCP Dr. Grissom * Pharmacy [facility] in [place] * Preadmission Environment Home with Family * ADLs Independent * Equipment None * List name and contact numbers for known caregivers / representatives who currently or will assist patient after discharge: Jose M Moore brother - [phone] Concetta Moore mother - [phone] * Verbal permission to speak to the caregivers and representatives has been obtained from the patient. Yes * Community resources currently utilized None * Additional services required to return to the preadmission environment? No * Can the patient safely return to the preadmission environment? Yes * Has this patient been hospitalized within the prior 30 days at any hospital? No Last DP export: 02/21/19 11:20 a Patient Name: COLTON CUBA Page 70503 at 1205 All edits/amendments must be made on the electronic document DICTATION DATE: 02/23/19 1205 SODA FOUNTAIN CLERK: CINTHIA 02/23/19 1205 RPT#: [id number] [place] DATE:02/21/19 STATUS: DIS IN [facility] [address] [place] [address] END OF REPORT
== END 2019-02-21 13:50 | disposition home or self-care (01) | DRG 193 ==
LOC: D.MS 12:16
PROVIDERS: Internal Medicine Nephrology; ADMIT Family Medicine; ATTEND Family Medicine
DX: J18.9 Pneumonia, unspecified organism (principal); A41.9 Sepsis, unspecified organism; J81.0 Acute pulmonary edema; Z68.43 Body mass index [BMI] 50.0-59.9, adult; E66.01 Morbid (severe) obesity due to excess calories; J20.9 Acute bronchitis, unspecified

== ENCOUNTER → 2020-08-27 09:53 | Outpatient (CLI) | payer MEDICARE ==
[2020-07-16 08:51] VITALS: BMI 55.9
--- NOTE | 2020-08-26 12:10 | NUR ---
CONFIRMED APPT FOR TOMORROW. PT STATED WILL BE HERE AT 10AM
--- NOTE | ~2020-08-27 | HEMODYNAMI ---
PATIENT:COLTON CUBA MEDICAL RECORD: [id number] : 66 LOCATION:[facility] ADMISSION DATE: 08/27/20 Generatedon:111:18 Patient name: COLTON CUBA Patient #: [id number] SSN: : 1970 Date of study: 08/27/2020 Page: Of Hemodynamic Procedure Report Patient Data Patient Demographics Procedure consent was obtained First Name: COLTON Gender: Male Last Name: BEREKET : 1970 [facility] Initial: JUDY Age: 49 year(s) Patient #: [id number] Race: Unknown Additional ID: [id number] Contact details [address]: [address] [place] [address] State: [place] City: [place] Zip code: [address] Admission Admission Data Admission Date: 08/27/2020 Admission Time: 9:53 Procedure Procedure Types Cath Procedure Peripheral Cath Diagnostic Procedure Miscellaneous Procedure Description Procedure Date Procedure Date: 08/27/2020 Procedure Start Time: 11:00 Procedure Staff Name Function Douglas Banks MD Performing Physician Dustin Gonzalez RT Monitor Procedure Data Cath Procedure Fluoroscopy Diagnostic fluoroscopy Total fluoroscopy Time: 1 time: 1 min min Diagnostic fluoroscopy Total fluoroscopy dose: 181 dose: 181 mGy mGy Contrast Material Contrast Material Type Amount (ml) Isovue 300 18 Hemodynamics Rest Pre Cath Intra NCS Post Cath Procedure Log Time Note 10:44:47 Dustin Gonzalez RT (R) (CV) sent for patient. Start room use. 10:44:54 Time tracking: Regular hours (M-F 7:00 - 5:00) 10:44:59 Patient received from Other to IR Alert and oriented. Tansferred to table in Supine position. 10:45:02 Signed procedure consent form obtained from patient. 10:45:03 - 10:45:04 Full Disclosure recording started 10:45:05 Pre-procedure instructions explained to patient. 10:45:06 Pre-op teaching completed and patient verbalized understanding. 10:46:49 PT STATES NO ALLERGIES 11:00:06 --------ALL STOP TIME OUT------ 11:00:07 Final Timeout: patient, procedure, and site verified with staff and physician. All members of the team are in agreement. 11:00:18 Sedation plan: None Medication:Lidocaine 11:00:31 Procedure started. 11:08:19 Procedure ended.(Physican Out) 11:08:31 Fluoroscopy time 01.00 minutes. 11:08:35 Fluoroscopy dose: 181 mGy 11:08:35 Flurop Dose total: 181 11:08:53 Contrast amount:Isovue 300 18ml. 11:09:04 PT SENT HOME Signature Audit [place] Stage Time Signature Unsigned Intra-Procedure 08/27/2020 Dustin 11:18:22 AM Carlos RT (R) (CV) [facility] [address] [facility] [place] [address]
[~2020-08-27 09:53] MED LIST: ALEVE220 MG PO; AUGMENTIN 875-11 TAB PO; FLOXIN 0.3 % OTI5 ML EACH EAR; NORCO 7.5-3251 EACH PO; PHENERGAN25 M1 PO; ZITHROMAX500 MG PO; ZOFRAN4 MG PO
== END | disposition home or self-care (01) ==
LOC: D.SP 09:53
PROVIDERS: ATTEND Internal Medicine Hematology & Oncology
DX: C49.9 Malignant neoplasm of connective and soft tissue, unspecified (principal)

== ENCOUNTER 2020-09-01 10:34 | Inpatient (IN) | payer MEDICARE ==
[~2020-09-01] VITALS: Ht 188 cm; Wt 182.3 kg
[~2020-09-01 10:34] MED LIST changes: -PHENERGAN25 M1 PO; -ZOFRAN4 MG PO
--- NOTE | 2020-09-01 11:00 | NUR ---
ASSESSMENT PER FLOW SHEET. ORIENTATION TO ROOM WITH PATIENT AND FAMILY.SCD'S TO ROOM.IV SITED TO LEFT FOREARM X2 STICKS 20G. LEFT PORT NOTED, BUT IS NOT USABLE. PORT MUST BE REPLACED.RED AREAS NOTED TO BLE AND ON BODY SPORATIC. CALL LIGHT IN REACH
[2020-09-01 11:31] LABS: HEMATOCRIT 33.2 % (42.0-54.0); HEMOGLOBIN 10.8 g/dL (13.5-17.5); LYMPHOCYTE ABS# 0.71 10x3/uL (1.32-3.57); MCH 27.8 pg (26.0-34.0); MCHC 32.5 g/dL (31.0-37.0); MCV 85.6 fL (80.0-100.0); MEAN PLATELET VOLUME 9.3 fL (7.4-10.4); NEUTROPHIL ABS# 1.66 10x3/uL (1.78-5.38); RBC 3.88 10x6/uL (4.20-6.10); RDW 15.5 % (11.5-14.5); WBC 2.6 10x3/uL (4.8-10.8)
[2020-09-01 11:32] LABS: PLATELET COUNT 40 10x3/uL (130-400)
[2020-09-01] MEDS ORDERED: PHENERGAN25 M1 PO (11:41)
[2020-09-01] MEDS ORDERED: ZOFRAN4 MG PO (11:42)
[2020-09-01 11:43] LABS: APTT 33.1 SECONDS (22.8-39.4); INR 1.18 (0.85-1.17); PROTIME 13.9 SECONDS (11.6-15.0)
[2020-09-01 12:05] LABS: ALBUMIN 2.4 g/dL (3.4-5.0); ALKALINE PHOSPHATASE 84 U/L (30-120); ALT (SGPT) 251 U/L (10-68); BILIRUBIN - TOTAL 0.53 mg/dL (0.2-1.3); CALC OSMOLALITY 267 mosm/kg (275-300); CALCIUM 7.9 mg/dL (8.5-10.1); CARBON DIOXIDE 30.6 mmol/L (21.0-32.0); CHLORIDE - SERUM 98 mmol/L (98-107); GLUCOSE 128 mg/dL (74-106); POTASSIUM - SERUM 3.2 mmol/L (3.5-5.1); SODIUM 134 mmol/L (136-145); UREA NITROGEN 8 mg/dL (7-18); eGFR NON AFRICAN AMERICAN 83 mL/min (90-120)
[2020-09-01 12:59] VITALS: BP 131/70
[2020-09-01 14:36] LABS: BASOPHILS 1 % (0-2); EOSINOPHILS 1 % (0-7); LYMPHOCYTES 31 % (15-50); MONOCYTES 4 % (2-11); NEUTROPHILS 63 % (40-80); PLATELET ESTIMATE DECREASED
[2020-09-01 14:37] LABS: ANISOCYTOSIS OCC; HYPOCHROMASIA OCC; ROULEAUX OCC
[2020-09-01 15:05] LABS: % SATURATION 14 % (15-55); IRON 34 ug/dl (35-150); TOTAL IRON BIND CAPACITY 241 ug/dl (260-445); UNSAT IRON BIND CAPACITY 207 ug/dl (150-375)
[2020-09-01 17:18] VITALS: BP 132/81
[2020-09-01 18:03] VITALS: BP 131/70; BMI 51.7
--- NOTE | 2020-09-01 19:31 | NUR ---
ATTEMPTED SCD'S AND TEDS ORDERED. PATIENT CANNOT TOLERATE THEM AND WANTS THEM OFF. DRINKING CONTRAST FOR CT. CONT PLAN OF CARE
[2020-09-01 20:06] VITALS: BP 137/55
[2020-09-02 00:27] VITALS: BP 131/62
--- NOTE | 2020-09-02 02:37 | NUR ---
Patient had complained of nausea when he came back from his CT scan, he was ordered a zofran drip, it is running at this time and it appears to have helped, pain was managed with the prescribed pain medications. He refused to wear the SCD's, he says he cannot tolerate them. After the zofran drip and pain medication given he appears to be resting well at this time.
[2020-09-02 04:00] VITALS: BP 124/60
[2020-09-02 06:35] LABS: ALBUMIN 2.2 g/dL (3.4-5.0); ALKALINE PHOSPHATASE 84 U/L (30-120); ALT (SGPT) 262 U/L (10-68); BASOPHILS 0.2 % (0-2); BILIRUBIN - TOTAL 0.53 mg/dL (0.2-1.3); CALC OSMOLALITY 269 mosm/kg (275-300); CALCIUM 7.7 mg/dL (8.5-10.1); CARBON DIOXIDE 29.6 mmol/L (21.0-32.0); CHLORIDE - SERUM 101 mmol/L (98-107); EOSINOPHILS 3.4 % (0-7); GLUCOSE 107 mg/dL (74-106); HEMATOCRIT 33.1 % (42.0-54.0); HEMOGLOBIN 10.7 g/dL (13.5-17.5); IMMATURE GRANULOCYTES 0.8 % (0-5); LYMPHOCYTE ABS# 1.09 10x3/uL (1.32-3.57); LYMPHOCYTES 16.8 % (15-50); MAGNESIUM - SERUM 1.9 mg/dL (1.8-2.4); MCH 27.7 pg (26.0-34.0); MCHC 32.3 g/dL (31.0-37.0); MCV 85.8 fL (80.0-100.0); MEAN PLATELET VOLUME 8.6 fL (7.4-10.4); MONOCYTES 5.1 % (2-11); NEUTROPHIL ABS# 4.78 10x3/uL (1.78-5.38); NEUTROPHILS 73.7 % (40-80); POTASSIUM - SERUM 3.5 mmol/L (3.5-5.1); PROTEIN - SERUM 5.6 g/dL (6.4-8.2); RBC 3.86 10x6/uL (4.20-6.10); RDW 15.6 % (11.5-14.5); SODIUM 136 mmol/L (136-145); UREA NITROGEN 7 mg/dL (7-18); WBC 6.5 10x3/uL (4.8-10.8); eGFR NON AFRICAN AMERICAN 83 mL/min (90-120)
[2020-09-02 06:37] LABS: PLATELET COUNT 41 10x3/uL (130-400)
[2020-09-02 07:56] VITALS: BP 140/68
[2020-09-02 11:39] VITALS: BP 140/77
[2020-09-02 11:45] LABS: BILIRUBIN NEGATIVE (NEGATIVE); KETONE NEGATIVE (NEGATIVE); NITRITE NEGATIVE (NEGATIVE)
[2020-09-02 11:46] LABS: SQUAMOUS EPITHELIAL OCC HPF (0-4); WHITE CELLS - URINE RARE HPF (0-1)
[2020-09-02 11:47] LABS: BACTERIA FEW HPF (NONE SEEN)
[2020-09-02 13:44] VITALS: Ht 188 cm; Wt 182.3 kg
[2020-09-02 16:00] VITALS: BP 152/95
--- NOTE | 2020-09-02 16:00 | NUR ---
PATIENT BACK FROM OR AT THIS TIME. IV INTACT. VS STABLE. BSCDS ON BUT HAS NO MACHINE AT THIS TIME. DOES NOT WANT TO WEAR SCDS. EXPLAINED FOR BLOOD CLOTS AND THAT THEY PREVENT HIM FROM GETTING THEM. VERBALIZED UNDERSTANDING. STATED HE WOULD WEAR THEM WHEN HE GETS A MACHINE. VS STABLE AT THIS TIME. CALL LIGHT WITHIN REACH.
--- NOTE | 2020-09-02 18:49 | NUR ---
PATIENT RECIEVED PLATELETS THROUGH PORT AT THIS TIME. IV INTACT. VS STABLE. NO COMPLAINTS OR SIGNS OF DISTRESS. TOLERATED REGULAR DIET WITH NO N/V. CALL LIGHT WITHIN REACH.
--- NOTE | 2020-09-02 20:00 | NUR ---
PT UPSET THAT PIV IN LEFT AC KEEPS ALARMING OCCLUDED WHEN HE BENDS HIS ARM AND STATES HE CANNOT SLEEP ANOTHER NIGHT WITH IT ALARMING. SALINE LOCKED IV AND BEGAN INFUSING NS AND ZOFRAN DRIP INTO LEFT CHEST PORT. PT DENIES PAIN OR OTHER NEEDS AT THIS TIME. CL IN REACH
[2020-09-02 20:18] VITALS: BP 143/64
--- NOTE | 2020-09-02 21:30 | NUR ---
BROUGHT SCD MACHINE TO PT ROOM AND PT AGREEABLE TO PUTTING SCDS ON. PT EDUCATED ON NEED FOR SCDS. ABOUT 15MIN AFTER PLACING SCDS ON PT CALLED THIS NURSE TO ROOM STATING HE COULD NOT WEAR THEM ANY LONGER AND TO TAKE THEM OFF, THAT THEY WERE CAUSING HIS CALFS TO CRAMP UP. AGAIN EDUCATED ON PT OF PURPOSE OF SCDS AND PT REFUSED TO WEAR THEM. PT DENIED ANY OTHER NEEDS AT THIS TIME. CL IN REACH
--- NOTE | 2020-09-03 00:05 | NUR ---
PT LYING IN BED SLEEPING WITHOUT DISTRESS, CL IN REACH
[2020-09-03 00:29] VITALS: BP 140/69
[2020-09-03 04:00] VITALS: BP 137/74
[2020-09-03 07:04] LABS: HEMATOCRIT 33.2 % (42.0-54.0); HEMOGLOBIN 10.6 g/dL (13.5-17.5); LYMPHOCYTE ABS# 1.33 10x3/uL (1.32-3.57); MCH 27.5 pg (26.0-34.0); MCHC 31.9 g/dL (31.0-37.0); MEAN PLATELET VOLUME 9.2 fL (7.4-10.4); NEUTROPHIL ABS# 4.04 10x3/uL (1.78-5.38); PLATELET COUNT 91 10x3/uL (130-400); RBC 3.86 10x6/uL (4.20-6.10); RDW 15.8 % (11.5-14.5); WBC 6.5 10x3/uL (4.8-10.8)
[2020-09-03 07:16] LABS: ALBUMIN 2.4 g/dL (3.4-5.0); ALKALINE PHOSPHATASE 102 U/L (30-120); ALT (SGPT) 233 U/L (10-68); BILIRUBIN - TOTAL 0.37 mg/dL (0.2-1.3); CALC OSMOLALITY 271 mosm/kg (275-300); CALCIUM 7.9 mg/dL (8.5-10.1); CARBON DIOXIDE 28.1 mmol/L (21.0-32.0); CHLORIDE - SERUM 104 mmol/L (98-107); GLUCOSE 131 mg/dL (74-106); MAGNESIUM - SERUM 2.2 mg/dL (1.8-2.4); PROTEIN - SERUM 5.9 g/dL (6.4-8.2); SODIUM 136 mmol/L (136-145); UREA NITROGEN 6 mg/dL (7-18); eGFR NON AFRICAN AMERICAN 83 mL/min (90-120)
[2020-09-03 07:17] LABS: POTASSIUM - SERUM 4.1 mmol/L (3.5-5.1)
[2020-09-03 07:40] LABS: ANISOCYTOSIS OCC; LYMPHOCYTES 20 % (15-50); NEUTROPHILS 80 % (40-80); PLATELET ESTIMATE DECREASED
[2020-09-03 08:31] VITALS: BP 135/52
--- NOTE | 2020-09-03 16:00 | NUR ---
PATIENT IV IN LEFT ARM REMOVED AT THIS TIME WITH CATH TIP INTACT. ACCESS FLUSHED WITH HEPARIN FLUSHES EARLIER BY DR. HOPPER. REMOVED ACCESS AND PLACED DRESSING. EXPLAINED TO PATIENT TO LEAVE ON FOR 24 HOURS AND TO LEAVE STERI STRIPS ABOVE SITE AND BESIDE SITE ON UNTIL THEY FALL OFF BY THEMSELVES. VERBALIZED UNDERSTANDING. NO QUESTIONS AT THIS TIME. TELE REMOVED AND TAKEN TO RADHA IN ICU.
--- NOTE | 2020-09-03 16:10 | NUR ---
PATIENT RECIEVED DISCHARGE INSTRUCTIONS. VERBALIZED UNDERSTANDING. NO QUESTIONS AT THIS TIME. FAMILY AT BEDSIDE. ESCORTED PATIENT DOWN TO PRIVATE VEHICLE WITH PERSONAL BELONGS, VIA WC.
[2020-09-04 11:11] LABS: HEPATITIS C ANTIBODY <0.1 S/CO RAT (0.0-0.9)
== END 2020-09-03 16:10 | disposition home or self-care (01) | DRG 809 ==
LOC: D.MS 10:34
PROVIDERS: Family Medicine; Family Medicine Adult Medicine; Surgery; ADMIT Internal Medicine Hematology & Oncology; ATTEND Internal Medicine Hematology & Oncology
PROC: 05WY33Z Revision of Infusion Device in Upper Vein, Percutaneous Approach (ICD-10-PCS; principal; 2020-09-02 10:30)
DX: D61.810 Antineoplastic chemotherapy induced pancytopenia (principal); C49.9 Malignant neoplasm of connective and soft tissue, unspecified; C78.00 Secondary malignant neoplasm of unspecified lung; N17.9 Acute kidney failure, unspecified; Z68.43 Body mass index [BMI] 50.0-59.9, adult; T82.594A Other mechanical complication of infusion catheter, initial encounter; E46 Unspecified protein-calorie malnutrition; T45.1X5A Adverse effect of antineoplastic and immunosuppressive drugs, initial encounter; E66.01 Morbid (severe) obesity due to excess calories; Y83.9 Surgical procedure, unspecified as the cause of abnormal reaction of the patient, or of later complication, without mention of misadventure at the time of the procedure